=== PATIENT | female | born 1945 | race Caucasian/White ===

== ENCOUNTER 2020-08-03 14:30 | Inpatient (IN) | payer MEDICARE ==
[2020-08-03 15:30] VITALS: BMI 24.1
[2020-08-03] MEDS ORDERED: Calcium Chloride 1 GM/10 ML Abboject SYRINGE ONE (16:59)
[2020-08-03] MEDS ORDERED: Artificial Tear Sol 15 ML BOT EA EYE PRN (17:20)
[2020-08-03] MEDS: Acetaminophen 325 MG TAB PO SCH (18:41)
[2020-08-03] MEDS ORDERED: Pantoprazole 40 MG VIAL IVP SCH (21:00)
[2020-08-04] MEDS: Acetaminophen 325 MG TAB PO SCH ×4 (00:37→17:07)
[2020-08-04 05:39] LABS: #Basophils 0.1 thou/uL (0.0-0.2); #Eosinphils 0.1 thou/uL (0.0-0.7); #Lymphocytes 1.3 thou/uL (1.20-3.40); #Monocytes 0.5 thou/uL (0.11-0.59); #Neutrophils 5.9 thou/uL (1.40-6.50); %Basophils 1.1 % (0.0-1.0); %Eosinophils 1.2 % (0.0-10.0); %Lymphocytes 16.1 % (21.0-51.0); %Monocytes 6.4 % (0.0-10.0); %Neutrophils 75.2 % (42.0-75.0); Hemoglobin 7.9 g/dL (12.0-16.0); Mean Corpuscular HGB CONC 30.7 g/dL (32.0-36.0); Mean Corpuscular Hemoglobin 27.7 pg (27.0-31.0); Mean Platelet Volume 6.1 fL (7.4-10.4); Platelet Count 439 thou/uL (130-400); RBC Distribution Width 16.1 % (11.5-14.5); Red Blood Cell (RBC) Count 2.87 mill/uL (4.20-5.40); White Blood Cell (WBC) Count 7.8 thou/uL (4.8-10.8)
[2020-08-04 05:57] LABS: ALT (SGPT) 31 U/L (8-55); AST (SGOT) 22 U/L (5-34); Albumin 2.3 g/dL (3.4-4.8); Alkaline Phosphatase 180 U/L (40-110); Anion Gap 13 mmol/L (10-20); BUN (Urea Nitrogen) 14 mg/dL (9.8-20.1); Bilirubin, Total 0.4 mg/dL (0.2-1.2); Calc. Creatinine Clearance 87 mL/min (70-130); Calcium 10.2 mg/dL (7.8-10.44); Carbon Dioxide 30 mmol/L (23-31); Chloride 104 mmol/L (98-107); Globulin 3.3 g/dL (2.4-3.5); Glucose 93 mg/dL (83-110); Protein, Total 5.6 g/dL (6.0-8.3); Sodium 143 mmol/L (136-145)
[2020-08-04] MEDS: Metamucil PACK PER TUBE SCH (08:55)
[2020-08-04] MEDS: Saccharomyces boulardii 250 MG CAP PO SCH (08:56)
[2020-08-04] MEDS: Bisoprolol Fumarate 5 MG TAB PO SCH (08:56)
[2020-08-04] MEDS: Ascorbic Acid 500 mg Chewable Tablet PO SCH (08:56)
[2020-08-04] MEDS: Hydrochlorothiazide 25 MG TAB PO SCH (08:56)
[2020-08-04] MEDS: Furosemide 40 MG TAB PO SCH (08:56)
[2020-08-04] MEDS: Ferrous Sulfate 325 MG TAB PO SCH ×2 (08:56→17:07)
[2020-08-04] MEDS: Spironolactone 25 MG TAB PO SCH (08:56)
[2020-08-04] MEDS: Amiodarone 200 MG TAB PO SCH (08:56)
[2020-08-04] MEDS: Apixaban 5 MG TAB PO SCH ×2 (08:56→21:45)
[2020-08-04] MEDS ORDERED: FLU VACC QS2020-21(65YR UP)/PF 240 MCG/0.7 ML SYRINGE IM ONE (09:00)
--- NOTE | 2020-08-04 11:59 | HP ---
HISTORY OF PRESENT ILLNESS: The patient is a very pleasant 74-year-old white female with a previous history of diverticulitis, who had a perforated colon with subsequent development of peritonitis requiring partial colectomy and small bowel resection with subsequent ileostomy placement two weeks ago. She is doing well now, but has had complications of acute kidney injury, which has resolved, the supraventricular tachycardia which has resolved and deep venous thrombosis in the right lower extremity, which is being treated with full-dose anticoagulation with apixaban. This time, she denies fever, chills, cough, shortness of breath, palpitations, chest pain. She does have some abdominal pain. She did have exploratory laparotomy requiring wound VAC, which was recently discontinued and the patient's abdominal incision stapled. She did have an extensive blood loss and has required transfusion of 5 units of packed cells, but appears to be stable at this time with most recent hemoglobin of 7.9. Her acute renal failure as mentioned above has completely resolved. Her most recent GFR was greater than 90. She has had development of significant malnutrition and hypoalbuminemia with most recent albumin 2.9, had been as low as 1.8 immediately postop, but normally was 3.7 earlier this year. At surgery, she was found to have, in addition to the perforation, adenocarcinoma of the colon, being followed by Oncology for stage II adenocarcinoma with a plan for chemotherapy once she recovers. She is on amiodarone 400 mg once daily for one month for the episode of atrial fibrillation. She has converted to sinus rhythm postop. She has been restarted back on her metoprolol, which was her outpatient medication and initial treatment with Entresto was discontinued as her left ventricular ejection fraction was found to be decreased only slightly to 45% to 50%. The patient had been living alone with only a previous history of hypertension and diverticulosis as she lived in [place]. PAST SURGICAL HISTORY: Positive also for total abdominal hysterectomy, salpingo-oophorectomy, appendectomy, previous partial colectomy and colostomy for diverticulitis. She has never had a colonoscopy. SOCIAL HISTORY: As mentioned above, she lives alone. Nonsmoker, nondrinker. FAMILY MEDICAL HISTORY: Noncontributory. REVIEW OF SYSTEMS: HEENT: She denies any headaches, dizziness, change in vision or hearing, hoarseness, or dysphagia. PULMONARY: She denies cough, sputum production, pneumonia, asthma, or tuberculosis. CARDIOVASCULAR: She denies chest pain, orthopnea, paroxysmal nocturnal dyspnea, edema. No previous history of myocardial infarction, congestive heart failure. GASTROINTESTINAL: She has the above-mentioned history of abdominal pain, rebound prior to this admission, but previously had no significant abdominal pain, constipation. GENITOURINARY: She denies dysuria, hematuria, nocturia. MUSCULOSKELETAL: She denies stiffness, swelling, pain in her joints or extremities. PHYSICAL EXAMINATION: GENERAL: The patient is an elderly white female, lying in bed, in no acute distress. VITAL SIGNS: Show temperature 96.7, pulse 73, respirations 18, blood pressure 108/52. HEENT: Pupils are equal, round, and reactive to light and accommodation. Sclerae anicteric. Conjunctivae pale. Oral mucous membranes well hydrated. NECK: Supple. There are no nodes or masses. JVP is not elevated. LUNGS: Clear. CARDIAC: Shows regular rhythm. ABDOMEN: Shows recently stapled midline laparotomy incision. No masses. Minimal tenderness. Good bowel sounds. Ileostomy in place. SKIN/EXTREMITIES: minimal crepitus knees. No edema, clubbing, cyanosis. LABORATORY DATA: Most recent laboratory shows sodium 144, potassium 3.6, chloride 105, carbon dioxide 32, BUN 16, creatinine 0.58, albumin 2.9. White count 8.1, hemoglobin 7.7, hematocrit 25.7. Most recent EKG done last week revealed sinus rhythm, minimal voltage LVH. Echocardiogram as mentioned above shows ejection fraction of 45% to 50% with some mild diastolic dysfunction. Venogram done July 26 revealed a partially occlusive thrombus of the right common femoral. ASSESSMENT: 1. A 74-year-old white female with history of hypertension and diverticular disease, presented with a perforated colon, found to have cancer of the colon, stage IIC perforation requiring partial colectomy and partial small bowel resection and lysis of adhesions with subsequent need for ileostomy and wound VAC. The wound VAC has been removed and she has been stable and is admitted to inpatient rehab for PT, OT. She did have postop complication of paroxysmal atrial fib treated with amiodarone for the next month with only minimal decrease in ejection fraction of 50% and now in sinus rhythm. 2. She had a recent diagnosis of DVT of the right lower leg, partially occlusive thrombus, now on apixaban indefinitely. 3. She has had significant anemia secondary to blood loss, requiring 5 units of blood. Now, hemoglobin is 7.9. We will monitor closely. 4. She also has significant malnutrition. Albumin down to 2.9, but is eating well. We will monitor closely. 5. She has had acute kidney injury, resolved and now has a normal renal function with a GFR greater than 90. PLAN: Continue PT, OT. Continue wound care. Follow up with Oncology after discharge. Continue amiodarone for 1 month. Continue apixaban indefinitely. Dietary consult to monitor nutrition closely. Transfuse if needed. Job ID: [id number]
[2020-08-05] MEDS: Acetaminophen 325 MG TAB PO SCH ×4 (00:30→17:59)
[2020-08-05] MEDS: Metamucil PACK PER TUBE SCH (10:26)
[2020-08-05] MEDS: Saccharomyces boulardii 250 MG CAP PO SCH (10:27)
[2020-08-05] MEDS: Hydrochlorothiazide 25 MG TAB PO SCH ×2 (10:29→10:30)
[2020-08-05] MEDS: Apixaban 5 MG TAB PO SCH ×2 (10:30→21:56)
[2020-08-05] MEDS: Furosemide 40 MG TAB PO SCH (10:30)
[2020-08-05] MEDS: Bisoprolol Fumarate 5 MG TAB PO SCH (10:30)
[2020-08-05] MEDS: Amiodarone 200 MG TAB PO SCH (10:30)
[2020-08-05] MEDS: Ferrous Sulfate 325 MG TAB PO SCH ×2 (10:30→17:59)
[2020-08-05] MEDS: Ascorbic Acid 500 mg Chewable Tablet PO SCH (10:32)
[2020-08-05] MEDS: Spironolactone 25 MG TAB PO SCH (10:32)
[2020-08-06] MEDS: Acetaminophen 325 MG TAB PO SCH ×5 (00:16→23:57)
[2020-08-06 05:27] LABS: #Basophils 0.1 thou/uL (0.0-0.2); #Eosinphils 0.2 thou/uL (0.0-0.7); #Lymphocytes 1.4 thou/uL (1.20-3.40); #Monocytes 0.6 thou/uL (0.11-0.59); #Neutrophils 9.3 thou/uL (1.40-6.50); %Basophils 0.5 % (0.0-1.0); %Eosinophils 1.6 % (0.0-10.0); %Lymphocytes 12.3 % (21.0-51.0); %Monocytes 4.9 % (0.0-10.0); %Neutrophils 80.7 % (42.0-75.0); Hemoglobin 8.9 g/dL (12.0-16.0); Mean Corpuscular HGB CONC 31.3 g/dL (32.0-36.0); Mean Corpuscular Hemoglobin 27.7 pg (27.0-31.0); Mean Corpuscular Volume 88.8 fL (78.0-98.0); Mean Platelet Volume 6.4 fL (7.4-10.4); Platelet Count 462 thou/uL (130-400); RBC Distribution Width 16.5 % (11.5-14.5); Red Blood Cell (RBC) Count 3.19 mill/uL (4.20-5.40); White Blood Cell (WBC) Count 11.5 thou/uL (4.8-10.8)
--- NOTE | 2020-08-06 06:57 | PRG ---
DATE OF SERVICE: 08/04/2020 SUBJECTIVE: The patient is a very pleasant 74-year-old white female, who has undergone a partial colectomy and intestinal bowel movement because of perforated viscus felt initially due to diverticulitis, but found also to be associated to cancer of the colon. She has required ileostomy and is eating poorly, but is eating with no nausea or vomiting. She has had complications of acute kidney injury, which is resolved; supraventricular tachycardia, which resolved; deep venous thrombosis, however, which is being treated with full-dose anticoagulation. She also has had an episode of paroxysmal atrial fibrillation and therefore has been placed on amiodarone with conversion to normal sinus rhythm and on anticoagulation with apixaban. She also has been found to have a DVT of the right leg, being treated with apixaban. Her acute kidney injury has completely resolved, but she is eating very poorly and will have Ensure and MightyShakes ordered and intake and output need to be monitored closely because of ileostomy, possible increased output. Her wound VAC has been removed and recently placed vannesa will be monitored closely for signs of infection. OBJECTIVE: VITAL SIGNS: Temperature 96.7, pulse 84, respirations 20, O2 sats 97% on room air, and blood pressure 99/56. LUNGS: Clear. CARDIAC: Shows regular rhythm. ABDOMEN: Soft and minimally tender with a healing stapled incision and ileostomy functioning well. SKIN/EXTREMITIES: Show decreased skin turgor. No edema, clubbing, or cyanosis. NEUROLOGIC: Intact. LABORATORY DATA: Showed white count of 7800, hematocrit 25, hemoglobin 7.9, sodium 143, potassium 4.0, chloride 104, bicarb 30, BUN 14, creatinine 0.61, alkaline phosphatase 180, protein 5.6, albumin is down to 2.3, AST 22, and ALT 31. ASSESSMENT: 1. Cancer of the colon, stage IIC with CBC to be done tomorrow according to Oncology and Procrit to be given if hemoglobin is less than 11. 2. History of paroxysmal atrial fibrillation, converted to sinus rhythm, on amiodarone, maintained. 3. History of deep venous thrombosis, on apixaban, resolving. 4. Severe deconditioning and malnutrition. Awaiting PT, OT, and we will increase caloric intake and have dietary consult with MightyShakes and Ensure. PLAN: 1. Procrit 40,000 units subcu tomorrow. 2. Continue PT/OT. 3. Continue to monitor for recurrent atrial fibrillation. 4. Continue rate control and anticoagulation of atrial fib and of DVT with apixaban. 5. Increased caloric intake with Ensure and MightyShakes and monitor closely and may need caloric count. Job ID: [id number]
[2020-08-06] MEDS: Spironolactone 25 MG TAB PO SCH (09:00)
[2020-08-06] MEDS: Amiodarone 200 MG TAB PO SCH (09:00)
[2020-08-06] MEDS: Ferrous Sulfate 325 MG TAB PO SCH ×2 (09:00→17:17)
[2020-08-06] MEDS: Apixaban 5 MG TAB PO SCH ×2 (09:01→21:52)
[2020-08-06] MEDS: Ascorbic Acid 500 mg Chewable Tablet PO SCH (09:01)
[2020-08-06] MEDS: Bisoprolol Fumarate 5 MG TAB PO SCH (09:01)
[2020-08-06] MEDS: Furosemide 40 MG TAB PO SCH (09:01)
[2020-08-06] MEDS: Metamucil PACK PER TUBE SCH (09:01)
[2020-08-06] MEDS: Hydrochlorothiazide 25 MG TAB PO SCH (09:02)
[2020-08-06] MEDS: Saccharomyces boulardii 250 MG CAP PO SCH (09:02)
[2020-08-06] MEDS ORDERED: EPOETIN ALFA-EPBX (ESRD) 10,000 UNIT/ML VIAL SC SCH (10:00)
--- NOTE | 2020-08-06 19:51 | PRG ---
DATE OF SERVICE: 08/05/2020 SUBJECTIVE: Ms. Alegre is up in bed and denies any complaints. She apparently has been cleared to drink thin liquids and we encouraged her to drink so with aspiration precautions. Discussed with nursing. No family at bedside. OBJECTIVE: VITAL SIGNS: She is afebrile. Heart rate is 86, respirations 22, oxygen saturation 97% on room air, blood pressure 111/56. CARDIOVASCULAR SYSTEM: S1, S2 plus. RESPIRATORY SYSTEM: Normal vesicular breath sounds. ABDOMEN: Soft, nontender. Bowel sounds heard in all quadrants. EXTREMITIES: Without cyanosis or clubbing. CENTRAL NERVOUS SYSTEM: Generalized weakness, otherwise nonfocal. IMPRESSION: 1. Hypertension. 2. Recent diagnosis of colon cancer with perforation requiring partial colectomy and ileostomy placement. 3. Paroxysmal atrial fibrillation. 4. Right lower extremity deep vein thrombosis. 5. Anemia of chronic disease. 6. Improving dysphagia. PLAN: 1. Continue current medications. 2. Nutritional support. 3. DVT prophylaxis. 4. Decubitus precautions. 5. Monitor heart rate and rhythm. 6. Physical therapy. 7. Routine laboratory values. Job ID: [id number]
[2020-08-07 06:03] LABS: ALT (SGPT) 27 U/L (8-55); AST (SGOT) 16 U/L (5-34); Albumin 2.7 g/dL (3.4-4.8); Alkaline Phosphatase 174 U/L (40-110); Anion Gap 15 mmol/L (10-20); BUN (Urea Nitrogen) 23 mg/dL (9.8-20.1); Bilirubin, Total 0.4 mg/dL (0.2-1.2); Calc. Creatinine Clearance 60 mL/min (70-130); Calcium 10.8 mg/dL (7.8-10.44); Carbon Dioxide 30 mmol/L (23-31); Chloride 99 mmol/L (98-107); Globulin 3.8 g/dL (2.4-3.5); Glucose 105 mg/dL (83-110); Potassium 3.9 mmol/L (3.5-5.1); Protein, Total 6.5 g/dL (6.0-8.3); Sodium 140 mmol/L (136-145)
[2020-08-07] MEDS: Acetaminophen 325 MG TAB PO SCH ×4 (06:06→23:35)
[2020-08-07] MEDS: Ferrous Sulfate 325 MG TAB PO SCH ×2 (08:43→17:33)
[2020-08-07] MEDS: Apixaban 5 MG TAB PO SCH ×2 (08:44→20:50)
[2020-08-07] MEDS: Furosemide 40 MG TAB PO SCH (08:44)
[2020-08-07] MEDS: Spironolactone 25 MG TAB PO SCH (08:44)
[2020-08-07] MEDS: Ascorbic Acid 500 mg Chewable Tablet PO SCH (08:44)
[2020-08-07] MEDS: Bisoprolol Fumarate 5 MG TAB PO SCH (08:44)
[2020-08-07] MEDS: Amiodarone 200 MG TAB PO SCH (08:44)
[2020-08-07] MEDS: Hydrochlorothiazide 25 MG TAB PO SCH (08:44)
[2020-08-07] MEDS: Metamucil PACK PER TUBE SCH (08:45)
[2020-08-07] MEDS: Saccharomyces boulardii 250 MG CAP PO SCH (08:45)
[2020-08-08] MEDS: Acetaminophen 325 MG TAB PO SCH ×2 (05:27→12:00)
[2020-08-08 07:43] VITALS: TEMP 96.7
[2020-08-08] MEDS: Bisoprolol Fumarate 5 MG TAB PO SCH (08:20)
[2020-08-08] MEDS: Spironolactone 25 MG TAB PO SCH (08:20)
[2020-08-08] MEDS: Ascorbic Acid 500 mg Chewable Tablet PO SCH (08:21)
[2020-08-08] MEDS: Metamucil PACK PER TUBE SCH (08:21)
[2020-08-08] MEDS: Ferrous Sulfate 325 MG TAB PO SCH (08:21)
[2020-08-08] MEDS: Saccharomyces boulardii 250 MG CAP PO SCH (08:21)
[2020-08-08] MEDS: Amiodarone 200 MG TAB PO SCH (08:21)
[2020-08-08] MEDS: Apixaban 5 MG TAB PO SCH (08:22)
--- NOTE | 2020-08-08 09:27 | PRG ---
DATE OF SERVICE: 08/07/2020 SUBJECTIVE: The patient feels weak but is cooperating with therapy. She is eating. She is having no abdominal pain. No palpitations. No shortness of breath. No dizziness or lightheadedness. OBJECTIVE: VITAL SIGNS: Her temperature is 97.3, pulse 89, respirations 20, O2 sats 96% on room air, blood pressure 109/60. LUNGS: Clear. CARDIAC: Shows regular rhythm. ABDOMEN: Soft and nontender. LABORATORY: Shows a white count 01263, hematocrit 28, hemoglobin 9. Sodium is 140, potassium 3.9, chloride 99, bicarb 30, BUN 23, creatinine 0.88, albumin 2.7, which has increased from admission of 2.3. Total protein 6.5, up from 5.6. ASSESSMENT: 1. Improving deconditioning, cooperating with therapy. 2. Recent history of perforated colon secondary to new diagnosis of type 2 cancer of the colon, being followed by Oncology with recent dose of Procrit and followup scheduled after discharge. 3. New onset of atrial fibrillation, resolved with treatment. 4. Congestive heart failure, off her Entresto with ejection fraction of 45-50%, but with persistent hypotension on furosemide and hydrochlorothiazide and may discontinue. 5. Acute kidney failure, resolved. 6. Severe malnutrition, hypoalbuminemia, improving with nutritional support. PLAN: 1. Continue PT and OT. 2. Monitor vital signs and may discontinue diuretics. 3. Continue to stress increased oral intake. 4. Continue to monitor for recurrent atrial fibrillation. 5. Continue to monitor for decompensation congestive heart failure. Job ID: [id number]
--- NOTE | 2020-08-08 10:38 | PRG ---
DATE OF SERVICE: 08/08/2020 SUBJECTIVE: The patient feels well, lying in the bed. No shortness of breath, chest pain, is weak, has been working with therapy. OBJECTIVE: VITAL SIGNS: Blood pressure is 97/59, temperature is 96, pulse 84, respirations 20, O2 sats 98% on room air. LUNGS: Clear except for the few rales in the bases. CARDIAC: Regular rhythm. ABDOMEN: Soft and nontender. EXTREMITIES: Show no edema, clubbing, or cyanosis. LABORATORY DATA: Sodium 140, potassium 3.9, chloride 99, bicarb 30, BUN 23, creatinine 0.88, albumin of 2.7, alkaline phosphatase 174. ASSESSMENT: 1. Resolving deconditioning, working with therapy. 2. Systolic and diastolic heart failure with hypotension. We will discontinue furosemide and hydrochlorothiazide. Continue Aldactone, and repeat BNP and chest x-ray. 3. Resolving partial colectomy and ileostomy with malnutrition improving, but we will stress Ensure with every meal. 4. Paroxysmal atrial fibrillation, no evidence of recurrence. 5. Acute kidney injury, resolved. We will repeat again today. 6. Cancer of the colon that cause recent perforated colon and deconditioning. Will follow up with Oncology after discharge. PLAN: 1. Continue PT, OT. 2. Discontinue furosemide and hydrochlorothiazide. 3. Repeat BMP, BNP, CBC. 4. Continue stress oral intake with Ensure with every meal. 5. Continue to monitor for recurrent atrial fibrillation. 6. Continue to monitor for decompensated congestive heart. Job ID: [id number]
--- NOTE | 2020-08-08 11:34 | RAD ---
XR Chest 1 View Portable HISTORY: CHF COMPARISON: 07/26/2020 FINDINGS: The heart size is normal. The aorta is tortuous. The lungs are well expanded without focal areas of consolidation, pneumothorax or pleural effusions. There is minimal scarring in the left lower lung. IMPRESSION: No radiographic evidence of acute cardiopulmonary process.
[2020-08-08] MEDS: Furosemide 40 MG TAB PO SCH (11:45)
[2020-08-08] MEDS: Hydrochlorothiazide 25 MG TAB PO SCH (11:45)
[2020-08-08 13:36] LABS: ALT (SGPT) 25 U/L (8-55); AST (SGOT) 16 U/L (5-34); Albumin 2.9 g/dL (3.4-4.8); Alkaline Phosphatase 195 U/L (40-110); Anion Gap 15 mmol/L (10-20); BUN (Urea Nitrogen) 31 mg/dL (9.8-20.1); Bilirubin, Total 0.5 mg/dL (0.2-1.2); CK (CPK) 21 U/L (29-168); Calc. Creatinine Clearance 44 mL/min (70-130); Calcium 11.1 mg/dL (7.8-10.44); Carbon Dioxide 30 mmol/L (23-31); Chloride 97 mmol/L (98-107); Globulin 4.3 g/dL (2.4-3.5); Glucose 137 mg/dL (83-110); Potassium 4.2 mmol/L (3.5-5.1); Protein, Total 7.2 g/dL (6.0-8.3); Sodium 138 mmol/L (136-145)
--- NOTE | 2020-08-08 13:48 | CT ---
CT BRAIN WITHOUT CONTRAST: 08/08/20 HISTORY: Altered mental status, colon cancer, stroke protocol. FINDINGS: Comparison is made with exam of 07/09/20. There is a new area of decreased attenuation in the medial aspect of the left occipital lobe. No hemo rrhage, midline shift, or abnormal extra-axial fluid collections seen. The ventricular size is approp riate and the basilar cisterns patent. The bony calvarium is intact. The visualized paranasal sinuses and mastoid air cells are well aerated. IMPRESSION: Findings suspicious for acute left [employer] infarction. Further evaluation with contrast enhanced MRI is r ecommended to exclude underlying mass. Discussed over the telephone with ER physician, Dr. Helms at 1:24 p.m. POS: IGNACIO
[2020-08-08 14:03] LABS: INR-International Normal Ratio 2.1; PTT 45.2 sec (22.9-36.1); Prothrombin Time 24.1 sec (12.0-14.7)
[2020-08-08 14:06] LABS: Hemoglobin 10.3 g/dL (12.0-16.0); Mean Corpuscular HGB CONC 30.3 g/dL (32.0-36.0); Mean Corpuscular Hemoglobin 27.3 pg (27.0-31.0); Mean Platelet Volume 5.9 fL (7.4-10.4); Platelet Count 544 thou/uL (130-400); RBC Distribution Width 16.7 % (11.5-14.5); Red Blood Cell (RBC) Count 3.76 mill/uL (4.20-5.40); White Blood Cell (WBC) Count 14.9 thou/uL (4.8-10.8)
[2020-08-08 14:18] LABS: Anisocytosis SLIGHT = 6-15 cells (100X) (0-5/hpf); Band 7 % (5-11); Hypochromia SLIGHT = 6-15 cells (100X) (0-5/hpf); Lymphocytes 20 % (21-51); MDiff Complete? YES; Monocytes 4 % (0-10); Neutrophil 69 % (42-75); Platelet Morphology Comment Appears Increased
[2020-08-08 14:31] VITALS: BP 110/67
== END 2020-08-08 13:36 | disposition short-term general hospital (02) | DRG 947 ==
LOC: NAV ACUTE 14:30
PROVIDERS: ADMIT Internal Medicine; ATTEND Internal Medicine
DX: R53.81 Other malaise (principal); E43 Unspecified severe protein-calorie malnutrition; I82.5Z1 Chronic embolism and thrombosis of unspecified deep veins of right distal lower extremity; D62 Acute posthemorrhagic anemia; I50.40 Unspecified combined systolic (congestive) and diastolic (congestive) heart failure; Z88.2 Allergy status to sulfonamides; Z79.01 Long term (current) use of anticoagulants; Z90.710 Acquired absence of both cervix and uterus; Z90.49 Acquired absence of other specified parts of digestive tract; Z93.3 Colostomy status; Z90.722 Acquired absence of ovaries, bilateral; I48.0 Paroxysmal atrial fibrillation; D63.8 Anemia in other chronic diseases classified elsewhere; E88.09 Other disorders of plasma-protein metabolism, not elsewhere classified; I11.0 Hypertensive heart disease with heart failure; I95.9 Hypotension, unspecified; Z68.24 Body mass index [BMI] 24.0-24.9, adult
CPT/HCPCS: 36415; 36416; 70450; 71045; 80053; 82550; 83880; 84484; 85025; 85610; 85730; 97602; J7620; Q5105

== ENCOUNTER 2020-08-08 13:36 | Emergency (ER) | payer MEDICARE ==
[2020-08-08] MEDS ORDERED: Lorazepam 2 MG/ML VIAL ONE (13:58)
[2020-08-08 14:22] LABS: Bilirubin Small (Negative); Blood, Urine Large (Negative); Clarity Turbid (Clear); Glucose, Urine (Dipstick) Negative (Negative); Ketone, Urine Negative (Negative); Leukocyte Small (Negative); Nitrite Negative (Negative); Protein, Urine (Dipstick) > or equal to 300 mg/dL (Neg-Trace); Urobilinogen 0.2 mg/dL (Less than 2)
[2020-08-08 14:31] LABS: Specific Gravity, Urine Greater/Equal 1.030 (1.005-1.030)
[2020-08-08 14:32] LABS: RBC/HPF Greater than 50 HPF (0-3); WBC/HPF Greater Than 50 HPF (0-3)
[2020-08-08 14:33] LABS: Bacteria/HPF 3+ HPF (None Seen); Squamous Epithelial 0-3 HPF (0-3)
[2020-08-08 15:01] LABS: SARS-CoV-2 NAA Rapid Test Not Detected (NotDetected)
== END 2020-08-08 14:30 | disposition short-term general hospital (02) ==
LOC: NAV ERS 13:36
DX: I63.9 Cerebral infarction, unspecified (principal); I10 Essential (primary) hypertension; Z79.899 Other long term (current) drug therapy
CPT/HCPCS: 0240U; 96374; 99285; 81003; 81015; J2060